=== PATIENT | male | born 1995 | race Caucasian/White ===

== ENCOUNTER 2019-02-05 08:44 | Observation (INO) ==
[2019-02-05] MEDS ORDERED: SODIUM CHLORIDE 0.9% 1000ML 1,000 ML IV ONE (09:08)
[2019-02-05 09:22] LABS: Basophils # (auto) 0.03 K/uL (0-0.2); Basophils % (auto) 0.2 %; Eosinophils # (auto) 0.07 K/uL (0-0.5); Eosinophils % (auto) 0.6 %; Hemoglobin 15.9 g/dL (14.0-18.0); Immature Granulocytes # (auto) 0.04 K/uL (0.00-0.02); Immature Granulocytes % (auto) 0.3 %; Lymphocytes # (auto) 2.65 K/uL (1.2-3.4); Lymphocytes % (auto) 21.6 %; Mean Corpuscular Hemoglobin 29.1 pg (25-34); Mean Corpuscular Hgb Conc 34.6 g/dL (32-36); Mean Corpuscular Volume 84.2 fL (80-100); Mean Platelet Volume 9.8 fL (7.4-10.4); Neutrophils # (auto) 8.37 K/uL (1.4-6.5); Neutrophils % (auto) 68.3 %; Platelet Count 351 K/uL (130-400); RDW Coefficient of Variation 12.1 % (11.5-14.5); RDW Standard Deviation 36.8 fL (36.4-46.3); Red Blood Count 5.46 M/uL (4.7-6.1); White Blood Count 12.26 K/uL (4.8-10.8)
[2019-02-05 09:37] LABS: Albumin Level 3.9 gm/dl (3.4-5.0); BUN Creatinine Ratio 11.9 (10-20); Calcium 9.7 mg/dl (8.5-10.1); Est GFR (African American) 135.5; Est GFR (Non-African American) 116.9; Potassium 3.9 mmol/L (3.5-5.1)
[2019-02-05 09:40] LABS: Albumin Globulin Ratio 1.1 (0.9-2); Bilirubin,Total 0.9 mg/dl (0.2-1); Globulin 3.6 gm/dl (2.5-4.0); Total Protein 7.5 gm/dl (6.4-8.2)
[2019-02-05] MEDS ORDERED: IOVERSOL 100ml IV PRN (09:41)
--- NOTE | 2019-02-05 10:18 | CT Scan Report ---
ABDOMEN AND PELVIS CT WITH IV CONTRAST CT DOSE: 1353.38 mGy.cm HISTORY: Acute right lower quadrant abdominal pain RLQ abd pain TECHNIQUE: Multiaxial CT images of the abdomen and pelvis were performed following the IV administrat ion of 94 cc of Optiray 320, A dose lowering technique was utilized adhering to the principles of [place] A[place]IS. COMPARISON STUDY: None. FINDINGS: 2 mm fissural nodule of the right lung base on image 29 series 3 is likely benign. 2 mm solid nodule the basal left lower lobe is also likely benign. No pneumatosis or pneumoperitoneum. Imaged inferior cardiac chambers are unremarkable. Spleen is mildly enlarged measuring up to 14.3 cm in length. Gallb ladder, liver, pancreas and adrenal glands are unremarkable. Kidneys, ureters and urinary bladder are unremarkable. Aorta and IVC are within normal limits. Retroa ortic left renal vein. Urinary bladder prostate are unremarkable. No bowel obstruction. Trace dependent fluid within the pelvis. Dilated fluid-filled appendix measures up to 1.3 cm transversely. There are a few punctate foci noted within the appendiceal lumen which ma y reflect appendicoliths. No drainable fluid collection or evidence of perforation. Mildly prominent lymph nodes within the right lower quadrant mesentery are likely reactive. The soft tissues are unrem arkable. Bones appear to be intact. IMPRESSION: 1. Findings compatible with acute uncomplicated appendicitis. No evidence of perforation or drainable fluid collection. 2. Mild reactive free fluid within the dependent pelvis. 3. Mild splenomegaly. Electronically signed by: Michoacano Lam M.D. 02/05/2019 10:16 AM
--- NOTE | 2019-02-05 10:30 | Emergency Department Note ---
History of Present Illness General Chief complaint: Abdominal Pain Stated complaint: SHARP PAIN IN LOWER RT ABD,CANT EAT,PAIN WHEN MOVI Time Seen by Provider: 02/05/19 08:57 History of Present Illness Maximum Pain Intensity: 3 23-year-old male who presents the emergency department for evaluation of sharp right lower abdomen pain radiating into the center of the abdomen. He reports that the pain started yesterday afternoon and anatomy lab, and has progressively worsened. The patient reports that it feels like he has to urinate. The patient has not noticed any blood or darkened urine. He denies history of kidney stones. He denies any pain extending into the back, and also denies any fever or chills. The patient rates his discomfort a 3 out of 10. The pain is worsened with ambulation and movement. Home Medications Home Medications Medication Instructions Recorded Confirmed Type alprazolam [Xanax] 0.25 mg PO HS PRN 02/05/19 02/05/19 History hydrocodone-acetaminophen [Palmer] 1 - 2 tab PO Q6H PRN #30 tab 02/05/19 Rx ibuprofen 200 mg PO QID PRN 02/05/19 02/05/19 History wgpcavbf-vlc-qutvv-vit K-lycop 1 tab PO QAM 02/05/19 02/05/19 History [One-A-Day Men's Multivitamin] Allergies Allergy/AdvReac Type Severity Reaction Status Date / Time seafood AdvReac Vomiting Uncoded 02/05/19 09:33 Past Med/Surg History Medical History No significant past medical history Surgical History No significant past surgical history Social History Preferred Language: Armenian Communication Ability: Effective Cartography/Mapping Technician Required: No Beliefs That Will Affect Care: None marital status: Single Current Living Situation: Alone Current Living Situation Comment: dorm at [facility] current occupational status: student Other Information That Helps Us Care for You: No Feels Safe at Home: Yes Safety Concerns: Feels Safe At This Time Smoking Status: Never smoker Do You Dip or Chew Tobacco: No ; Second Hand Exposure: No ; Tobacco Cessation Education Requested by Patient: No Hx Alcohol Use: Yes Hx Substance Use: No Review of Systems 10 system review was performed and was negative except for pertinent positives and negatives as indicated in history of present illness Physical Exam Vital Signs Vital Signs - 24 hr 02/05/19 08:52 02/05/19 10:02 02/05/19 11:18 Temperature 36.8 C Temperature Source Oral Pulse Rate 73 Pulse Rate [Left] 76 70 Pulse Rhythm [Left] Regular Pulse Strength [Left] Respiratory Rate 18 16 14 Respiratory Effort / Characteristics Non-Labored Spontaneous Non-Labored Spontaneous Non-Labored Spontaneous Respiratory Depth Normal Normal Normal Respiratory Pattern Regular Blood Pressure 164/97 H Blood Pressure [Left Arm] 139/82 135/85 Blood Pressure Mean 119 Blood Pressure Mean [Left Arm] 101 101 Blood Pressure Position Sitting Blood Pressure Position [Left Arm] Lying Pulse Oximetry 97 98 98 Oxygen Delivery Method Room Air Room Air Room Air Sepsis Recent Fever Within 48 Hours No Sepsis Action Taken by Nursing No Action Required 02/05/19 12:08 Temperature 36.5 C Temperature Source Oral Pulse Rate Pulse Rate [Left] 72 Pulse Rhythm [Left] Regular Pulse Strength [Left] Normal Respiratory Rate 20 Respiratory Effort / Characteristics Non-Labored Spontaneous Respiratory Depth Normal Respiratory Pattern Regular Blood Pressure Blood Pressure [Left Arm] 147/83 H Blood Pressure Mean Blood Pressure Mean [Left Arm] 104 Blood Pressure Position Blood Pressure Position [Left Arm] Sitting Pulse Oximetry 96 Oxygen Delivery Method Room Air Sepsis Recent Fever Within 48 Hours Sepsis Action Taken by Nursing CONSTITUTIONAL: Healthy and well nourished. Alert and oriented X 3. She does not appear in any acute distress. HEENT: Normocephalic, atraumatic. Pupils equal, round and reactive. NECK: Full active range of motion without discomfort. LYMPHATICS: No cervical chain adenopathy. RESPIRATORY: Clear to auscultation bilaterally with no wheezing, crackles, rhonchi or stridor. CARDIOVASCULAR: Regular rate and rhythm with no murmurs, rubs or gallops. GASTROINTESTINAL: Bowel sounds present in all quadrants. Examination shows a positive McBurney's point tenderness and Rovsing sign. Negative psoas/obturator sign and negative heel tap. Negative CVA tenderness. No abdominal rigidity, guarding or rebound. MUSCULOSKELETAL: Full range of motion of all joints without discomfort. INTEGUMENTARY: No rash or other significant dermatologic conditions noted. HEMATOLOGIC: No ecchymosis or petechiae. PSYCHIATRIC: Positive affect. NEUROLOGIC: No focal neurologic deficits noted. Course Course Vision history and physical exam were performed. Nurse's notes were reviewed. Vital signs were reviewed, showing an initial elevated blood pressure of 164/97. The patient did not appear in any acute distress. IV access was established, and labs were drawn. The patient was hydrated with a liter normal saline. He refused any additional analgesics or antiemetics. Review of labs shows a mild leukocytosis, left shift and bandemia. CMP, lipase and urinalysis were otherwise unremarkable. CT of the abdomen and pelvis with IV contrast confirms an acute uncomplicated appendicitis. 1 my initial examination with the patient, the patient reported that if he did have an appendicitis, he would rather drive back to the [facility] where he grew up and would prefer to have surgery. The patient was advised that he does indeed have an acute appendicitis. He reports that his parents were already on their way to [place] to pick him up. I did speak with the father on the phone, explaining that treatment would likely consist of laparoscopic appendectomy, which is a relatively straightforward procedure. The father agrees, but reports that he would probably need a few days to recover, and still would like to take the patient back home for surgical management. I did discuss the case further with Dr. Lan, ED attending physician, who has recommended that the patient be administered IV Rocephin prior to discharge. Shortly after this order was placed, the patient then stated that he and his parents have elected to have the surgery performed at our facility. The case was then discussed with Thierry Zacarias PA-C with Dr. Costello, general surgeon on- call. Please see his dictation for further treatment and final disposition. Administered Medications Cefoxitin Sodium 1,000 mg/ (Dextrose) 60 mls @ 100 mls/hr IV Q6H TERRELL Stop: 02/15/19 15:59 Last Admin: 02/05/19 16:49 Dose: 100 mls/hr Documented by: [id number] Discontinued Medications Bupivacaine HCl (Marcaine 0.5% Mpf) Confirm Administered Dose 30 ml .ROUTE .STK- MED ONE Stop: 02/05/19 12:27 Last Admin: 02/05/19 13:29 Dose: 12 ml Documented by: [id number] Sodium Chloride (Nss 1000ml) 1,000 mls @ 999 mls/hr IV .Q1H1M ONE Stop: 02/05/19 10:08 Last Infusion: 02/05/19 10:19 Dose: 0 mls/hr Documented by: [id number] Admin: 02/05/19 09:17 Dose: 999 mls/hr Documented by: [id number] Ceftriaxone Sodium (Rocephin) 2,000 mg in 70 mls @ 140 mls/hr IV NOW STA Stop: 02/05/19 11:09 Last Admin: 02/05/19 10:45 Dose: Not Given Documented by: [id number] Cefoxitin Sodium 2,000 mg/ (Dextrose) 60 mls @ 120 mls/hr IV PREOP TERRELL Stop: 02/05/19 18:00 Last Infusion: 02/05/19 11:47 Dose: 0 mls/hr Documented by: [id number] Admin: 02/05/19 11:17 Dose: 120 mls/hr Documented by: [id number] Acetaminophen (Ofirmev) 1,000 mg in 100 mls @ 400 mls/hr IV NOW ONE; Protocol Stop: 02/05/19 13:53 Last Admin: 02/05/19 14:57 Dose: Not Given Documented by: [id number] Ioversol (Optiray 320 100ml) 94 ml IV ONCE PRN PRN Reason: Interaction Checking Stop: 02/09/19 09:40 Last Admin: 02/05/19 09:41 Dose: 94 ml Documented by: [id number] Medical Decision Making Medical Records Attestation: I reviewed the patient's medical records. Home Medications Current Medication List: was personally reviewed by me Laboratory Data Attestation: I reviewed the patient's lab results. Result diagrams: 02/05/19 09:09 02/05/19 09:09 Lab Results 02/05/19 02/05/19 02/05/19 Range/Units 09:09 09:09 09:09 WBC 12.26 H (4.8-10.8) K/uL RBC 5.46 (4.7-6.1) M/uL Hgb 15.9 (14.0-18.0) g/dL Hct 46.0 (42-52) % MCV 84.2 (80-100) fL MCH 29.1 (25-34) pg MCHC 34.6 (32-36) g/dL RDW Std Deviation 36.8 (36.4-46.3) fL RDW Coeff of Jose 12.1 (11.5-14.5) % Plt Count 351 (130-400) K/uL MPV 9.8 (7.4-10.4) fL Immature Gran % (Auto) 0.3 % Neut % (Auto) 68.3 % Lymph % (Auto) 21.6 % [place] % (Auto) 9.0 % Eos % (Auto) 0.6 % Baso % (Auto) 0.2 % Immature Gran # (Auto) 0.04 H (0.00-0.02) K/uL Neut # (Auto) 8.37 H (1.4-6.5) K/uL Lymph # (Auto) 2.65 (1.2-3.4) K/uL [place] # (Auto) 1.10 H (0.11-0.59) K/uL Eos # (Auto) 0.07 (0-0.5) K/uL Baso # (Auto) 0.03 (0-0.2) K/uL Sodium 138 (136-145) mmol/L Potassium 3.9 (3.5-5.1) mmol/L Chloride 108 H (98-107) mmol/L Carbon Dioxide 24 (21-32) mmol/L Anion Gap 6.0 (3-11) BUN 11 (7-18) mg/dl Creatinine 0.93 (0.6-1.4) mg/dl Est Cr Clr Drug Dosing 155.0 ml/min Est GFR ( Amer) 135.5 Est GFR (Non-Af Amer) 116.9 BUN/Creatinine Ratio 11.9 (10-20) Glucose 98 (70-99) mg/dl Calcium 9.7 (8.5-10.1) mg/dl Total Bilirubin 0.9 (0.2-1) mg/dl AST 21 (15-37) U/L ALT 55 (12-78) U/L Alkaline Phosphatase 74 (45-117) U/L Total Protein 7.5 (6.4-8.2) gm/dl Albumin 3.9 (3.4-5.0) gm/dl Globulin 3.6 (2.5-4.0) gm/dl Albumin/Globulin Ratio 1.1 (0.9-2) Lipase 71 L (73-393) U/L Urine Color Yellow Urine Appearance Clear (Clear) Urine pH 8.5 H (4.5-7.5) Ur Specific [place] 1.032 H (1.000-1.030) Urine Protein Negative (Negative) Urine Glucose (UA) Negative (Negative) Urine Ketones Negative (Negative) Urine Blood Negative (Negative) Urine Nitrite Negative (Negative) Urine Bilirubin Negative (Negative) Urine Urobilinogen Negative (Negative) Ur Leukocyte Esterase Negative (Negative) Imaging Data Attestation: I personally reviewed and interpreted this imaging study as follows: My Impression: My interpretation of an abdomen and pelvis CT with IV contrast shows evidence for an uncomplicated appendicitis without evidence for perforation or abscess. Radiologist report was also reviewed. Radiologist's Impression: ABDOMEN AND PELVIS CT WITH IV CONTRAST CT DOSE: 1353.38 mGy.cm HISTORY: Acute right lower quadrant abdominal pain RLQ abd pain TECHNIQUE: Multiaxial CT images of the abdomen and pelvis were performed fo llowing the IV administration of 94 cc of Optiray 320, A dose lowering technique was utilized adhering to the principles of ALARA. COMPARISON STUDY: None. FINDINGS: 2 mm fissural nodule of the right lung base on image 29 series 3 is likely benign. 2 mm solid nodule the basal left lower lobe is also likely benign. No pneumatosis or pneumoperitoneum. Imaged inferior cardiac chambers are unremarka ble. Spleen is mildly enlarged measuring up to 14.3 cm in length. Gallbladder, liver, pancreas and adrenal glands are unremarkable. Kidneys, ureters and urinary bladder are unremarkable. Aorta and IVC are within normal limits. Retroaortic left renal vein. Urinary bladder prostate are unremarkable. No bowel obstruction. Trace dependent fluid within the pelvis. Dilated fluid- filled appendix measures up to 1.3 cm transversely. There are a few punctate foci noted within the appendiceal lumen which may reflect appendicoliths. No drainable fluid collection or evidence of perforation. Mildly prominent lymph nodes within the right lower quadrant mesentery are likely reactive. The soft tissues are unremarkable. Bones appear to be intact. IMPRESSION: 1. Findings compatible with acute uncomplicated appendicitis. No evidence of perforation or drainable fluid collection. 2. Mild reactive free fluid within the dependent pelvis. 3. Mild splenomegaly. Blood Pressure Blood Pressure Findings: Elevated blood pressure Blood Pressure Disposition: elevated BP felt to be situational MDM Narrative CT does show evidence for an acute appendicitis, and clinical examination is consistent with the same. The patient is afebrile, but does have a mild leukocytosis consistent with infectious etiology. Amatory studies are not consistent with UTI, pink otitis, cholecystitis or hepatitis. Clinical exam is not consistent with pyelonephritis. Impression & Plan Acute appendicitis Discharge Plan Visit Data *Final* Discharge Date/Time: 02/05/19 11:46 Chief Complaint: Abdominal Pain Stated Complaint: SHARP PAIN IN LOWER RT ABD,CANT EAT,PAIN WHEN MOVI ED Provider: William Lan ED Midlevel Provider: Pankaj Cueva Discharge Problem: Acute appendicitis Patient Disposition: Still a Patient Discharge Instructions Interventions: ED Discharge Assessment Last Done: 02/05/19 11:46
[2019-02-05 10:32] LABS: Appearance Urine Clear (Clear); Bilirubin Urine Negative (Negative); Blood Urine Negative (Negative); Color Urine Yellow; Glucose Urine UA Negative (Negative); Ketones Urine Negative (Negative); Leukocyte Esterase Urine Negative (Negative); Nitrite Urine Negative (Negative); Protein Urine Negative (Negative); Specific Gravity Urine 1.032 (1.000-1.030); Urobilinogen Urine Negative (Negative); pH Urine 8.5 (4.5-7.5)
[2019-02-05] MEDS ORDERED: cefTRIAXone SODIUM 2,000 MG/70 ML BAG IV STA (10:40)
--- NOTE | 2019-02-05 11:10 | History & Physical Report ---
Date of Service February 05, 2019 Assessment & Plan (1) Acute appendicitis: This is a 23y M with a PMH of asthma who presents to the [facility] ED this morning with nausea and right lower abdominal pain. Workup up in the ED with a CT scan reveals acute appendicitis without evidence of perforation. WBC 12. Patient tender in the RLQ. We will plan to keep the patient NPO with IVF, give pre-op abx, and book patient for the OR. Patient is agreeable to surgical intervention. Dr. Costello will be by to obtain surgical consent. Dr Costello- I examined pt in ER- agree with above discussed with pt and parents- proceed with appendectomy- laparoscopic vs open History of Present Illness Primary Care Provider: NO PCP This is a 23yM with a PMH of asthma who presents to the [facility] ED this morning with right lower abdominal pain. The patient reports that his symptoms developed yesterday when he was in anatomy lab and he started to become nauseated. After class he walked back to his dorm and started experiencing right lower quadrant abdominal pain. He admits the pain is better when lying down, but worsens with walking/movement. Rates it an 8/10 with movement, dull and sometimes sharp in character. He took some Ibuprofen yesterday so that he could eat dinner and to see if it would help the pain to pass. He last ate chicken patties around 7:30pm. This morning he woke up and the pain worsened which prompted him to come to the ED for further evaluation. Workup in the ED revealed a WBC of 12.2, patient afebrile, and CT scan was obtained showing acute appendicitis without evidence of perforation. Surgery was consulted to assess patient. He denies any episodes of vomiting, fevers, chills, or diarrhea. He endorses some constipation. He does not have a history of any abdominal surgeries. Allergies Allergy/AdvReac Type Severity Reaction Status Date / Time seafood AdvReac Vomiting Uncoded 02/05/19 09:33 Home Medications Home Medications Medication Instructions Recorded Confirmed Type alprazolam [Xanax] 0.25 mg PO HS PRN 02/05/19 02/05/19 History ibuprofen 200 mg PO QID PRN 02/05/19 02/05/19 History iwcvmrgc-vto-ckesb-vit K-lycop 1 tab PO QAM 12/05/19 12/05/19 History [One-A-Day Men's Multivitamin] Past Med/Surg History Social History Feels Safe at Home: Yes Smoking Status: Never smoker Review of Systems Respiratory: baseline respiratory status Cardiovascular: no chest pain Gastrointestinal: + abdominal pain (right lower abdomen), + bloating, + nausea and + constipation; no vomiting and no diarrhea/loose stools Physical Exam Physical Exam: awake/alert Constitutional: well developed and well nourished; no acute distress Respiratory: normal respiratory effort Gastrointestinal (Abdomen): Inspection/Auscultation: + abdomen distended (mild) Percussion/Palpation: + abdomen tender (in RLQ, + Rovsings) and abdomen soft Results & Data Vital Signs (Past 12 Hours) Vital Signs Temp Pulse Pulse Resp BP BP Pulse Ox 02/05/19 10:02 76 16 139/82 98 02/05/19 08:52 36.8 C 73 18 164/97 H [address] WITH IV CONTRAST CT DOSE: 1353.38 mGy.cm HISTORY: Acute right lower quadrant abdominal pain RLQ abd pain TECHNIQUE: Multiaxial CT images of the abdomen and pelvis were performed following the IV administration of 94 cc of Optiray 320, A dose lowering technique was utilized adhering to the principles of ALARA. COMPARISON STUDY: None. FINDINGS: 2 mm fissural nodule of the right lung base on image 29 series 3 is likely benign. 2 mm solid nodule the basal left lower lobe is also likely benign. No pneumatosis or pneumoperitoneum. Imaged inferior cardiac chambers are unremarkable. Spleen is mildly enlarged measuring up to 14.3 cm in length. Gallbladder, liver, pancreas and adrenal glands are unremarkable. Kidneys, ureters and urinary bladder are unremarkable. Aorta and IVC are within normal limits. Retroaortic left renal vein. Urinary bladder prostate are unremarkable. No bowel obstruction. Trace dependent fluid within the pelvis. Dilated fluid- filled appendix measures up to 1.3 cm transversely. There are a few punctate foci noted within the appendiceal lumen which may reflect appendicoliths. No drainable fluid collection or evidence of perforation. Mildly prominent lymph nodes within the right lower quadrant mesentery are likely reactive. The soft tissues are unremarkable. Bones appear to be intact. IMPRESSION: 1. Findings compatible with acute uncomplicated appendicitis. No evidence of perforation or drainable fluid collection. 2. Mild reactive free fluid within the dependent pelvis. 3. Mild splenomegaly. Electronically signed by: Michoacano Lam M.D. 02/05/2019 10:16 AM PG Care Time/CCT Total # of Minutes Spent Total Time Spent with Patient: Total time spent is greater than 50% in coordination of care (as documented) at patient's floor/unit and/or counseling patient:
[2019-02-05] MEDS ORDERED: fentaNYL citrate 100 MCG/2 ML VIAL ONE ×5 (11:14→13:26)
[2019-02-05] MEDS ORDERED: HYDROmorphone INJ 2 MG/ML SYR/VIAL ONE ×2 (11:14→13:36)
[2019-02-05] MEDS ORDERED: MIDAZOLAM HCL 1 MG/ML 2ML VIAL ONE (11:14)
[2019-02-05] MEDS ORDERED: cefOXitin 2,000 MG in DEXTROSE 5% 50 ML IV SCH (11:15)
[2019-02-05] MEDS ORDERED: ROCURONIUM BROMIDE 10 MG/ML 5 ML VIAL ONE (11:20)
[2019-02-05] MEDS ORDERED: GLYCOPYRROLATE 0.2 MG/ML VIAL ONE (11:20)
[2019-02-05] MEDS ORDERED: ONDANSETRON INJ 2 MG/ML 2 ML VIAL ONE (11:20)
[2019-02-05] MEDS ORDERED: PROPOFOL IV EMULSION 10 MG/ML 20 ML VIAL IV ONE ×2 (11:20→13:19)
[2019-02-05] MEDS ORDERED: DEXAMETHASONE SOD INJ 4 MG/ML VIAL ONE (11:20)
[2019-02-05] MEDS ORDERED: LIDOCAINE HCL 2% 2 ML VIAL/AMP(20MG/ML) INFIL ONE (11:20)
[2019-02-05] MEDS ORDERED: NEOSTIGMINE METHYLSULFATE 5 MG/5 ML SYR ONE (11:20)
[2019-02-05] MEDS ORDERED: HYDROmorphone INJ 1 MG/ML SYRINGE IV PRN (12:07)
[2019-02-05] MEDS ORDERED: ePHEDrine sulfate 50 MG/ML AMP IV PRN (12:07)
[2019-02-05] MEDS ORDERED: ONDANSETRON INJ 2 MG/ML 2 ML VIAL IV PRN ×2 (12:07→14:52)
[2019-02-05] MEDS ORDERED: fentaNYL citrate 100 MCG/2 ML VIAL IV PRN (12:07)
[2019-02-05] MEDS ORDERED: ATROPINE SULFATE 0.1 MG/ML 10ML SYR IV PRN (12:07)
--- NOTE | 2019-02-05 12:10 | Anesthesiology Consultation ---
Date of Service February 05, 2019 Assessment & Plan (1) Encounter for pre-operative examination: Chart Review Chart Review: Acceptable Risk for Surgery and Patient NOT seen in Pre Admission Testing Consults Requested none History Surgery Operation Date: 02/05/19 13:55 Proposed Procedures p Laparoscopic Appendectomy - Jesse Costello MD, FACS Height/Weight Height: 5 ft 6 in Weight: 122.3 kg Allergies Allergy/AdvReac Type Severity Reaction Status Date / Time seafood AdvReac Vomiting Uncoded 02/05/19 09:33 Medications Home Medications Medication Instructions Recorded Confirmed Last Taken alprazolam [Xanax] 0.25 mg PO HS PRN 02/05/19 02/05/19 Unknown ibuprofen 200 mg PO QID PRN 02/05/19 02/05/19 02/04/19 19:00 400 mg gmsmsmgg-vge-fwgur-vit K-lycop 1 tab PO QAM 02/05/19 02/05/19 02/04/19 [One-A-Day Men's Multivitamin] Active Medications Generic Name Dose Route Start Last Admin Trade Name Freq PRN Reason Stop Dose Admin Cefoxitin Sodium 2,000 mg/ 60 mls @ 120 mls/hr 02/05/19 11:15 02/05/19 11:47 Dextrose IV 02/05/19 18:00 Infused PREOP TERRELL Infusion Ioversol 94 ml 02/05/19 09:41 02/05/19 09:41 Optiray 320 100ml IV 02/09/19 09:40 94 ml ONCE PRN Administration Interaction Checking Past Medical History healthy Exercise / Class Metabolic Activity 1 > 8 Run/Swim/Ski/Tennis Past Surgical History [id number], right shoulder surgery Past Anesthesia History No Hx of Anesthesia Complications and No Family Hx of Anesthesia Complications History of PONV No Hx of PONV and No Hx of Motion Sickness Social History Smoking Status: Never smoker Do You Dip or Chew Tobacco: No Hx Alcohol Use: Yes alcohol intake frequency: other Alcohol Intake Frequency Comment: once every 3 weeks Hx Substance Use: No substance use type: does not use Physical Exam Vital Signs Last Vital Signs Temp 36.8 C 02/05/19 08:52 Pulse 70 02/05/19 11:18 Resp 14 02/05/19 11:18 BP 135/85 02/05/19 11:18 Pulse Ox 98 02/05/19 11:18 Testing Laboratory Results 02/05/19 09:09 02/05/19 09:09 Urine Color Yellow 02/05/19 09:09 Urine Appearance Clear (Clear) 02/05/19 09:09 Urine pH 8.5 (4.5-7.5) H 02/05/19 09:09 Ur Specific [place] 1.032 (1.000-1.030) H 02/05/19 09:09 Urine Protein Negative (Negative) 02/05/19 09:09 Urine Glucose (UA) Negative (Negative) 02/05/19 09:09 Urine Ketones Negative (Negative) 02/05/19 09:09 Urine Nitrite Negative (Negative) 02/05/19 09:09 Ur Leukocyte Esterase Negative (Negative) 02/05/19 09:09
[2019-02-05] MEDS ORDERED: BUPIVACAINE 0.5 % 5 MG/1 ML MPF 30ML VIAL ONE (12:26)
[2019-02-05] MEDS ORDERED: SUCCINYLCHOLINE CHLORIDE 20 MG/ML 10 ML VIAL ONE (13:14)
[2019-02-05] MEDS ORDERED: raNITIdine HCl 25 MG/ML VIAL IV ONE (13:14)
[2019-02-05] MEDS ORDERED: METOCLOPRAMIDE HCL INJ 5 MG/ML 2 ML VIAL ONE (13:14)
[2019-02-05] MEDS ORDERED: KETOROLAC 30 MG/ML VIAL ONE (13:19)
[2019-02-05] MEDS ORDERED: LARYING-O-JET KIT (LTA) ONE (13:20)
[2019-02-05] MEDS ORDERED: ACETAMINOPHEN 1,000 MG/100 ML VIAL IV ONE (13:39)
--- NOTE | 2019-02-05 13:39 | Post Operative Brief Note ---
PG Immediate Post Op with CF Date of Surgery February 05, 2019 Pre & Post Diagnosis Operation Date: 02/05/19 13:55 Pre-Op Diagnosis: APPENDICITIS Post-Op Diagnosis: APPENDICITIS I identified the patient and participated in the time-out.: Yes Procedure Operation Date: 02/05/19 13:55 Actual Procedures p Laparoscopic Appendectomy(Not Applicable) - Jesse Costello MD, FACS Surgeon Jesse Costello MD, FACS [employer] nurses Estimated Blood Loss 5 Findings Consistent with Post-Op Diagnosis Specimens Specimen Description: A. APPENDIX
--- NOTE | 2019-02-05 14:00 | Operative Report ---
DATE OF OPERATION: 02/05/2019 NAME OF OPERATION: Laparoscopic appendectomy. PREOPERATIVE DIAGNOSIS: Acute appendicitis. POSTOPERATIVE DIAGNOSIS: Acute appendicitis. STAFF SURGEON: Jesse Costello MD ANESTHESIA: General. DESCRIPTION OF PROCEDURE: The patient was brought in the operating room and placed on the operating table in supine position. His abdomen was prepped and draped in usual fashion. Pneumatic stockings, orogastric tube were placed. A 0.5% plain Marcaine was used to anesthetize all incisions. Incision was made above the umbilicus, carrying dissection down to the fascia, placing a Veress needle producing pneumoperitoneum. A 12 mm port was placed this level and then under visualization, two 5 mm ports placed, one suprapubic, one left lower quadrant. The appendix was grasped and retracted. It was inflamed distally consistent with acute appendicitis. The base of the appendix was dissected free and then using an Endo-REBECCA, the base of the appendix was transected using the stapler. The mesoappendix was then transected using the stapler and the appendix placed in an Endobag. It was removed through the 12 mm site. At this point, after irrigation and hemostasis, all ports were removed. The umbilical incision closed using interrupted 0 Vicryl suture, then the skin reapproximated using subcuticular 4-0 Monocryl with Dermabond. The patient was transferred to recovery room in stable condition. I attest to the content of the Intraoperative Record and any orders documented therein. Any exception s are noted below.
[2019-02-05] MEDS ORDERED: HYDROCODONE/ACETAMOPHEN 5/325MG TAB PO PRN ×2 (14:52)
[2019-02-05] MEDS ORDERED: SODIUM CHLORIDE 0.9% 1000ML 1,000 ML IV SCH (14:52)
[2019-02-05] MEDS ORDERED: IBUPROFEN 600 MG TAB PO PRN (14:52)
[2019-02-05] MEDS ORDERED: ACETAMINOPHEN 325 MG TAB PO PRN (14:52)
[2019-02-05] MEDS ORDERED: PROMETHAZINE HCL 25 MG in SODIUM CHLORIDE 0.9% 50 ML IV PRN (14:52)
[2019-02-05] MEDS ORDERED: PROMETHAZINE HCL 12.5 MG in SODIUM CHLORIDE 0.9% 50 ML IV PRN (14:52)
[2019-02-05] MEDS ORDERED: ALPRAZolam 0.25 MG TABLET PO PRN (14:52)
--- NOTE | 2019-02-05 14:54 | Anesthesiology Progress Note ---
Date of Service February 05, 2019 Anesthesia Post Procedure Vital Signs Vital Signs: Temp Pulse Pulse Pulse Resp BP BP 02/05/19 14:35 36.7 C 66 16 136/81 02/05/19 14:25 66 16 145/79 H 02/05/19 14:15 63 12 137/80 02/05/19 14:05 68 14 139/76 02/05/19 13:55 60 12 133/79 02/05/19 13:49 36.8 C 85 12 141/83 H 02/05/19 12:08 36.5 C 72 20 147/83 H 02/05/19 11:18 70 14 135/85 02/05/19 10:02 76 16 139/82 02/05/19 08:52 36.8 C 73 18 164/97 H Pulse Ox 02/05/19 14:35 94 02/05/19 14:25 94 02/05/19 14:15 98 02/05/19 14:05 96 02/05/19 13:55 99 02/05/19 13:49 97 02/05/19 12:08 96 02/05/19 11:18 98 02/05/19 10:02 98 02/05/19 08:52 97 Pain Intensity Abdomen: Pain Intensity: 2 Transfer of Care Handoff Completed per policy Notes Mental Status: alert / awake / arousable and participated in evaluation Patient Amnestic to Procedure: Yes Nausea / Vomiting: adequately controlled Pain: adequately controlled Airway Patency, RR, SpO2: stable & adequate BP & HR: stable & adequate Hydration State: stable & adequate Anesthetic Complications: no major complications apparent and Pt Satisfied with anesthetic care
[2019-02-05] MEDS ORDERED: MoRPHine SULFATE 4 MG/ML 1 ML CARP\\VIAL IV PRN (14:59)
[2019-02-05] MEDS ORDERED: INFLUENZA Vaccine HIGH DOSE 65+yrs 0.5 mL Syr IM ONE (15:15)
[2019-02-06 00:05] VITALS: O2SAT 93
[2019-02-06 07:12] VITALS: BP 133/69; PULSE 75; TEMP 98.4
--- NOTE | 2019-02-06 07:24 | Discharge Summary ---
DATE OF ADMISSION: 02/05/2019 DATE OF DISCHARGE: 02/06/2019 PRINCIPAL DIAGNOSIS: Acute appendicitis. PROCEDURES: The patient underwent laparoscopic appendectomy. HISTORY OF PRESENT ILLNESS: The patient is a 23-year-old male presenting to the Emergency Room with acute appendicitis. He was taken to the operating room on 02/05/2019 where he underwent laparoscopic appendectomy, which he tolerated very well. He has done well and is stable for discharge home today. His exam is normal with healing incisions. He will be followed in the surgical clinic within 2-3 weeks.
--- NOTE | 2019-02-06 08:29 | Anesthesiology Progress Note ---
Date of Service February 06, 2019 Anesthesia Post Procedure Vital Signs Vital Signs: Temp Pulse Pulse Pulse Pulse Pulse Resp 02/06/19 07:12 36.9 C 75 16 02/06/19 03:49 36.6 C 77 16 02/05/19 23:10 37.2 C 97 H 16 02/05/19 19:15 36.9 C 88 16 02/05/19 17:44 36.9 C 64 16 02/05/19 16:46 36.8 C 70 16 02/05/19 15:51 37.1 C 63 18 02/05/19 15:17 36.5 C 66 16 02/05/19 14:45 37.1 C 61 15 02/05/19 14:35 36.7 C 66 16 02/05/19 14:25 66 16 02/05/19 14:15 63 12 02/05/19 14:05 68 14 02/05/19 13:55 60 12 02/05/19 13:49 36.8 C 85 12 02/05/19 12:08 36.5 C 72 20 02/05/19 11:18 70 14 02/05/19 10:02 76 16 02/05/19 08:52 36.8 C 73 18 BP BP Pulse Ox 02/06/19 07:12 133/69 93 02/06/19 03:49 119/68 93 02/05/19 23:10 127/68 93 02/05/19 19:15 133/68 95 02/05/19 17:44 126/80 94 02/05/19 16:46 162/78 H 95 02/05/19 15:51 132/68 94 02/05/19 15:17 124/74 95 02/05/19 14:45 126/78 94 02/05/19 14:35 136/81 94 02/05/19 14:25 145/79 H 94 02/05/19 14:15 137/80 98 02/05/19 14:05 139/76 96 02/05/19 13:55 133/79 99 02/05/19 13:49 141/83 H 97 02/05/19 12:08 147/83 H 96 02/05/19 11:18 135/85 98 02/05/19 10:02 139/82 98 02/05/19 08:52 164/97 H 97 Pain Intensity Abdomen: Pain Intensity: 2 Notes Mental Status: alert / awake / arousable and participated in evaluation Nausea / Vomiting: adequately controlled Pain: adequately controlled Airway Patency, RR, SpO2: stable & adequate BP & HR: stable & adequate Hydration State: stable & adequate Anesthetic Complications: no major complications apparent and Pt Satisfied with anesthetic care
== END 2019-02-06 09:50 | disposition home or self-care (01) ==
LOC: ED 08:44 → ASU 11:46 → 3W 11:46
DX: E66.9 Obesity, unspecified; R10.31 Right lower quadrant pain; Z79.899 Other long term (current) drug therapy; K35.80 Unspecified acute appendicitis